=== PATIENT | female | born 1990 | race Caucasian/White ===

== ENCOUNTER 2022-01-23 09:50 | Outpatient (CLI) | payer OTHER, SELFPAY | END 2022-01-23 09:51 | disposition home or self-care (01) | LOC: NFLDREF 13:43 | PROVIDERS: Visit Provider Advanced Practice Midwife | DX: O20.9 Hemorrhage in early pregnancy, unspecified (principal) | CPT/HCPCS: 84702 ==

== ENCOUNTER 2022-01-25 14:20 | Outpatient (REF) | payer OTHER, SELFPAY | END 2022-01-25 14:21 | disposition home or self-care (01) | LOC: LAB 14:20 | PROVIDERS: Visit Provider Advanced Practice Midwife | DX: Z34.91 Encounter for supervision of normal pregnancy, unspecified, first trimester (principal); Z3A.01 Less than 8 weeks gestation of pregnancy | CPT/HCPCS: 36415; 84702 ==

== ENCOUNTER 2022-01-29 14:05 | Outpatient (CLI) | payer OTHER, SELFPAY ==
[2022-01-29 17:20] LABS: HIV 1/2/P24 Combo Screen* Negative (Negative)
[2022-01-29 17:51] LABS: Hepatitis B Surface Antigen* Negative (Negative)
[2022-01-29 18:09] LABS: Hepatitis C Virus Antibody* Negative (Negative)
[2022-01-29 19:12] LABS: Chlamydia DNA Amplified* Not Detected (No Detected); GC DNA Amplified* Not Detected (No Detected)
[2022-02-01 17:15] LABS: Varicella-Zoster Virus Ab, IgG 60.9 IV
[2022-02-01 17:18] LABS: Rubella Antibody IgG 15.8 IU/mL
[2022-02-01 18:34] LABS: Rapid Plasma Reagin (RPR) Non Reactive (Non Reactive)
== END 2022-01-29 14:06 | disposition home or self-care (01) ==
PROVIDERS: Visit Provider Advanced Practice Midwife
DX: Z34.91 Encounter for supervision of normal pregnancy, unspecified, first trimester (principal); Z3A.01 Less than 8 weeks gestation of pregnancy
CPT/HCPCS: 76817; 84443; 86592; 86703; 86762; 86787; 86803; 86850; 86900; 86901; 87086; 87340; 87491; 87591

== ENCOUNTER 2022-04-04 09:25 | Outpatient (CLI) | payer OTHER, SELFPAY ==
[2022-04-04 12:31] LABS: Cholesterol* 202 mg/dL (90-199)
[2022-04-04 12:32] LABS: Glucose* 73 mg/dL (60-115); HDL Cholesterol* 75 mg/dL (>=50); LDL Cholesterol Calculated 100 mg/dL (<100); Triglycerides* 137 mg/dL (40-149)
== END 2022-04-04 09:26 | disposition home or self-care (01) ==
PROVIDERS: Visit Provider Physician Assistant
DX: Z13.6 Encounter for screening for cardiovascular disorders (principal); Z13.1 Encounter for screening for diabetes mellitus
CPT/HCPCS: 80061; 82947

== ENCOUNTER 2022-04-30 08:53 | Outpatient (CLI) | payer OTHER, SELFPAY ==
--- NOTE | 2022-04-30 08:45 | CRLHL7_ITS ---
For Patients: As a result of the Century Cures Act, medical imaging exams and procedure reports are released immediately into your electronic medical record. You may view this report before your referring provider. If you have questions, please contact your health care provider. INDICATION: Evaluate anatomy. COMPARISON: 01/29/2022 TECHNIQUE: Real time yun scale imaging of the fetus was performed as well as color Doppler analysis of the umbilical vessels. FINDINGS: Sonographic imaging demonstrates a single living intrauterine gestation. Fetus demonstrates a regular cardiac rate of 148 beats per minute. Fetus has a variable position. The placenta lies placenta without evidence of placenta previa. The edge of the placenta is located 7.7 cm from the internal cervical os. Amniotic fluid volume appears normal. Single deepest vertical pocket: 3.7 cm. The cervix is closed and measures 4.9 cm in length. The composite ultrasound gestational age is calculated at 19 weeks 6 days with an estimated sonographic due date of 09/18/2022. The estimated weight is 342 grams which lies at the 52nd %. The following biometric measurements were obtained: Biparietal diameter: 4.4 cm/19 weeks 1 day 14th% Head circumference: 16.8 cm/19 weeks 3 days 14th% Abdominal circumference: 15.5 cm/20 weeks 5 days 60 30% Femur length: 3.2 cm/20 weeks 0 days 38th% The HC/AC ratio measures: 1.08 range (1.08-1.26) On anatomic survey, there is a normal appearance of the cerebral ventricles, cavum septi pellucidi, cisterna magna and cerebellum. The nose, lips, and facial profile appear normal. The cervical, thoracic and lumbar spine are well visualized and appear normal. Echogenic intracardiac focus. The left and right ventricular outflow tracts appear normal. The diaphragm and stomach appear normal. The kidneys and bladder also appear normal. There is a normal three-vessel cord and cord insertion site. The four extremities appear normal. IMPRESSION: Echogenic intracardiac focus, image 38/70, measuring 3 millimeters. Remainder of the survey is normal. Level 2 ultrasound recommended. Sonographic gestational age 19 weeks 6 days and sonographic due date of 09/18/2022. Good correlation with dates. Estimated weight 52nd percentile. Abdominal circumference 63rd percentile. Dictated by Sai Cid MD @ 04/30/2022 11:10:01 AM (Electronically Signed)
== END 2022-04-30 08:54 | disposition home or self-care (01) ==
LOC: US 08:53
PROVIDERS: Visit Provider Physician Assistant
DX: Z34.92 Encounter for supervision of normal pregnancy, unspecified, second trimester (principal); Z3A.20 20 weeks gestation of pregnancy
CPT/HCPCS: 76805

== ENCOUNTER 2022-05-07 14:28 | Outpatient (CLI) | payer OTHER, SELFPAY | END 2022-05-07 14:29 | disposition home or self-care (01) | LOC: US 14:28 | PROVIDERS: Visit Provider Pediatrics Neonatal-Perinatal Medicine | DX: Z34.92 Encounter for supervision of normal pregnancy, unspecified, second trimester (principal); Z3A.21 21 weeks gestation of pregnancy | CPT/HCPCS: 76816 ==

== ENCOUNTER 2022-06-27 07:56 | Outpatient (CLI) | payer OTHER, SELFPAY ==
[2022-06-27 08:06] LABS: Glucose Fasting Check 81 mg/dl (60-115)
[2022-06-27 11:54] LABS: Glucose GTT-Gestational 3 Hr 148 mg/dl (70-140)
[2022-06-27 11:55] LABS: Glucose 1 Hour Gest 183 mg/dl (70-180)
[2022-06-29 01:21] LABS: Rapid Plasma Reagin (RPR) Non Reactive (Non Reactive)
== END 2022-06-27 07:57 | disposition home or self-care (01) ==
PROVIDERS: Physician Assistant; Visit Provider Obstetrics & Gynecology
DX: Z34.93 Encounter for supervision of normal pregnancy, unspecified, third trimester (principal); Z3A.28 28 weeks gestation of pregnancy
CPT/HCPCS: 82951; 82952; 86592

== ENCOUNTER 2022-07-23 12:22 | Outpatient (CLI) | payer OTHER, SELFPAY ==
--- NOTE | 2022-07-23 12:15 | CRLHL7_ITS ---
For Patients: As a result of the Century Cures Act, medical imaging exams and procedure reports are released immediately into your electronic medical record. You may view this report before your referring provider. If you have questions, please contact your health care provider. INDICATION: COVED IN , GDM COMPARISON: 04/30/2022 TECHNIQUE: Real time yun scale imaging of the fetus was performed. FINDINGS: Sonographic imaging demonstrates a single living intrauterine gestation. Fetus demonstrates a regular cardiac rate of 142 beats per minute. Fetus has a vertex position. The placenta lies fundal posterior. Amniotic fluid volume appears normal and there is a single deepest vertical pocket: 5.7 cm. JEFF 19.0 cm. The estimated weight is 2027gm which lies at the 57th %. On the prior OB ultrasound exam dated 04/30/2022 the estimated weight was at the 52nd%. BPD 41st percentile. HC 25th percentile. AC 70th percentile. FL 50th percentile. The HC/AC ratio measures 1.02 range (0.96-1.12). IMPRESSION: Sonographic gestational age 32 weeks 4 days and sonographic due date of 09/13/2022. Good correlation with dates. Normal interval growth. Estimated weight 57th percentile. Abdominal circumference 70th percentile. Dictated by Sai Cid MD @ 07/24/2022 10:01:48 AM (Electronically Signed)
== END 2022-07-23 12:23 | disposition home or self-care (01) ==
LOC: US 12:23
PROVIDERS: Visit Provider Physician Assistant
DX: O98.513 Other viral diseases complicating pregnancy, third trimester (principal); U07.1 COVID-19; Z3A.32 32 weeks gestation of pregnancy
CPT/HCPCS: 76816

== ENCOUNTER 2022-08-19 15:52 | Outpatient (CLI) | payer OTHER, SELFPAY ==
--- NOTE | 2022-08-19 16:00 | CRLHL7_ITS ---
For Patients: As a result of the Century Cures Act, medical imaging exams and procedure reports are released immediately into your electronic medical record. You may view this report before your referring provider. If you have questions, please contact your health care provider. INDICATION: Third trimester scan, evaluate growth.+Covid in COMPARISON: 07/23/2022 TECHNIQUE: Real time yun scale imaging of the fetus was performed. FINDINGS: Sonographic imaging demonstrates a single living intrauterine gestation. Fetus demonstrates a regular cardiac rate of 145 beats per minute. Fetus has a vertex position. The placenta lies fundal posterior. Amniotic fluid volume appears normal and there is a single deepest vertical pocket: 7.3 cm. The estimated weight is 3139gm which lies at the 82nd %. On the prior OB ultrasound exam dated 07/23/2022 the estimated weight was at the 57th%. BPD 52nd percentile. HC 60th percentile. AC 96th percentile. FL 45th present. The HC/AC ratio measures 0.97 range (0.92-1.05). Normal gross body movements, tone and respiratory activity. IMPRESSION: Sonographic gestational age 36 weeks 6 days and sonographic due date 09/10/2022. Sonographic age is 6 days ahead of the clinical age. Estimated weight 82nd percentile. Abdominal circumference 96th percentile. Biophysical profile 12/16. Dictated by Sai Cid MD @ 08/21/2022 6:50:43 AM (Electronically Signed)
== END 2022-08-19 15:53 | disposition home or self-care (01) ==
LOC: US 15:53
PROVIDERS: Visit Provider Physician Assistant
DX: O98.519 Other viral diseases complicating pregnancy, unspecified trimester (principal); U07.1 COVID-19; Z3A.36 36 weeks gestation of pregnancy
CPT/HCPCS: 76816; 76819

== ENCOUNTER 2022-08-19 17:23 | Outpatient (CLI) | payer OTHER, SELFPAY ==
[2022-08-20 15:56] LABS: Strep B DNA Probe NEGATIVE (Negative)
[2022-08-20 15:57] LABS: Strep B Pen/Amox Allergy No
== END 2022-08-19 17:24 | disposition home or self-care (01) ==
LOC: NFLDREF 17:23
PROVIDERS: Visit Provider Physician Assistant
DX: Z34.93 Encounter for supervision of normal pregnancy, unspecified, third trimester (principal); Z3A.36 36 weeks gestation of pregnancy
CPT/HCPCS: 87081; 87653

== ENCOUNTER 2022-08-29 11:44 | Outpatient (CLI) | payer OTHER, SELFPAY ==
[2022-08-29 11:53] VITALS: PULSE 91; O2SAT 98
[2022-08-29 12:00] VITALS: BP 129/84; PULSE 97; RESP 20; TEMP 36.6
--- NOTE | 2022-08-29 12:49 | PM.PROC ---
Procedure Note Time Seen by Provider: 12:49 Date Seen: 08/29/22 Will [facility] bill your pro fee for this procedure?: Yes Pre-op diagnosis: Breech presentation on 08/27/22 Procedure: Bedside ultrasound showed fetus in vertex presentation. NST reactive, category 1. No ECV needed.
--- NOTE | 2022-08-29 13:08 | PC.OBNST ---
NST Note NST Note Start: 08/29/22 11:49 Freq: ONCE Status: Active Protocol: Document 08/29/22 12:59 [facility] (Rec: 08/29/22 13:02 [facility] [id number]) NST Note 3 Para (# of births) 2 EDC 09/16/22 Gestational Age In Weeks & Days 37 Weeks & 3 Days High Risk Factors Diabetes - Gestational Diet Controlled Patient Presented with Complaint(s) of Other Other Complaints External Version Reactive Yes Appropriate for Gestational Age Yes RN Addison Almodovar RN Date 08/29/22 Reactive Yes Appropriate for Gestational Age Yes TESSIE Soares RN Date 08/29/22 OB NST charge Yes Complete NST Note via Write Note Yes The provider's electronic signature indicates the NST is reactive/appropriate for gestational age. *Note to provider: If an addendum is required, open the patient's chart and click on the note under the Nurse/Allied Health tab.
== END 2022-08-29 12:59 | disposition home or self-care (01) ==
LOC: OB CLI 11:48 → OB 11:49
PROVIDERS: Visit Provider Obstetrics & Gynecology
DX: O24.419 Gestational diabetes mellitus in pregnancy, unspecified control (principal); Z3A.37 37 weeks gestation of pregnancy
CPT/HCPCS: 59025; 76815; 99211

== ENCOUNTER 2022-09-12 07:07 | Outpatient (CLI) | payer OTHER, SELFPAY ==
--- NOTE | 2022-09-12 07:15 | CRLHL7_ITS ---
For Patients: As a result of the Century Cures Act, medical imaging exams and procedure reports are released immediately into your electronic medical record. You may view this report before your referring provider. If you have questions, please contact your health care provider. INDICATION: COVID in TECHNIQUE: Real time yun scale imaging of the fetus was performed. COMPARISON: 08/19/2022 FINDINGS: Sonographic imaging demonstrates a single living intrauterine gestation. Fetus demonstrates a regular cardiac rate of 139 beats per minute. Fetus has a vertex position. The placenta lies posteriorly. Amniotic fluid volume appears normal and there is a single deepest pocket of 4.0 cm. JEFF 13.5 cm. The estimated weight is 3798gm which lies at the 74th %. On the prior OB ultrasound dated 08/19/2022 the estimated weight was at the 82nd percentile. BPD 69th percentile. HC 37th percentile. AC 92nd percentile. FL 13th percentile. The fetus was active. Absent breathing movements. There was normal flexion and extension of the trunk and extremities. IMPRESSION: Biophysical profile 10/16. Sonographic gestational age 39 weeks 0 days and sonographic due date 09/19/2022. Good correlation with dates. Normal interval growth. Estimated weight 74th percentile. Abdominal circumference 92nd percentile. Dictated by Sai Cid MD @ 09/12/2022 11:07:56 AM (Electronically Signed)
== END 2022-09-12 07:08 | disposition home or self-care (01) ==
LOC: US 07:08
PROVIDERS: Visit Provider Obstetrics & Gynecology
DX: O98.513 Other viral diseases complicating pregnancy, third trimester (principal); U07.1 COVID-19; Z3A.39 39 weeks gestation of pregnancy
CPT/HCPCS: 76816; 76819

== ENCOUNTER 2022-09-18 16:12 | Inpatient (IN) | payer OTHER, SELFPAY ==
[2022-09-18 16:19] VITALS: BP 121/76; PULSE 93
[2022-09-18 16:41] VITALS: BMI 30.3
--- NOTE | 2022-09-18 16:53 | P.OBHP_ITS ---
OB - H&P: HPI Labor/Induction History of Present Illness Time Seen by Provider: 17:15 Date Seen: 09/18/22 Chief Complaint: Analia is a 32 year old 3 para 2001 at 40 weeks and 2 days gestation by LMP, who is being admitted for cervical ripening followed by induction of labor for GDM A1. Chief complaint: Maternity Narrative: HPI: Analia is a 32-year-old 3 para 2001 at 40 and to/7weeks gestation being admitted for induction of labor. Her admission history and physical was completed by Dedra Chang MD on 08/27/2022. Her course has been complicated by diet-controlled gestational diabetes. Her membranes are not ruptured. She reports no painful contractions. The baby has been moving normally. Verbal consent obtained for Cook catheter placement. OB PROBLEM LIST: -Ruy 1. Bleeding in early . Per dating US: Left fundal uterus appear complex with hypoechoic areas with vascularity per farm equipment service technician report (radiologist report not back yet). Rad reort:?There is likely a perigestational hemorrhage adjacent to the left posterior gestational sac. 2. Varicella non-immune. Needs vaccination . 3. Family hx of hypothyroid. TSH collected at NOB: 1.68 4. FAS 04/30/2022:? echogenic intracardiac focus seen, no other anomalies, EFW 52%, posterior placenta. Negative [id number]. 5. Covid positive 05/13, out of quarantine 05/21/22. Growth US 32 & 36 weeks * 07/23/2022:? EFW 57%, BPD 41%, HC 25%, AC 70%, FL 50%, SDP 5.7 cm, JEFF 19 cm. * 08/19/2022: EFW 82%, BPD 52%, HC 60%, AC 96%, FL 45%, SDP 7.3 cm. BPP 8/8 6. Elected to do a 3 hour GTT at 28 weeks.? 85, 183H, 190H, 148H Gestational diabetes * Referral to nutrition * Q.i.d. blood sugar monitoring * Excellent blood sugar control on diet alone. * Patient prefers induction of labor closer to 40 weeks than 39 weeks, if needed. OBJECTIVE: GENERAL: Pleasant, , well groomed woman in no acute distress. VITAL SIGNS: Per electronic medical record: They are normal. HEART: Regular rate and rhythm without gallop, rub or murmur. CHEST: Clear to auscultation bilaterally. ABDOMEN: Gravid, nontender. EFM: Baseline 130s, accelerations: present, decelerations: Absent, moderate variability, reactive. Category 1 TOCO: Rare contractions. SVE: 2 cm/50 %/-2/mid/medium consistency. [place] score 5. Cook catheter placed at 5:30 p.m. with 60 mL of saline in both balloons EXTREMITIES: No edema, cyanosis, clubbing or pain. ASSESSMENT: 32-year-old 3 para 2001 at 40 and 2/7 weeks gestation admitted for cervical ripening followed by induction of labor.. PLAN: 1. Cook catheter placed with 60 mL of saline in both balloons at 5:30 p.m. on 09/18/2022. 2. Dr. Dedra Chang will assume care at 7:00 a.m. tomorrow on 09/19/2022 3. GBS negative 4. Blood type: B positive Meds Home Medications and Allergies Home Medications Medication Instructions Recorded Confirmed Type prenat.vits,rafael,zpc-zejc-bffci 1 tab PO QDAY 01/29/22 09/15/22 History magnesium 250 mg tablet 250 mg PO QDAY 02/21/22 09/15/22 History Allergies Allergy/AdvReac Type Severity Reaction Status Date / Time prochlorperazine Allergy Mild Jittery, Verified 09/15/22 07:56 felt like her throat was closing OB - H&P: Exam Physical Exam: Vital signs: Pulse BP 93 121/76 09/18/22 16:19 09/18/22 16:19
[2022-09-18 19:24] VITALS: BP 136/84; PULSE 83; PULSE 88; RESP 18; TEMP 36.8; O2SAT 96
[2022-09-18 23:39] VITALS: BP 111/69; PULSE 104; PULSE 93; PULSE 94; RESP 18; TEMP 36.8; O2SAT 92; O2SAT 95
[2022-09-19] VITALS (26 sets, daily range): BP systolic 105–131; BP diastolic 58–84; PULSE 65–128; RESP 16; TEMP 36.4–36.8; O2SAT 93–98
[2022-09-19] MEDS: LACTATED RINGERS 1000 ML 1,000 ML 125 ML IV (03:15)
[2022-09-19] MEDS: OXYTOCIN 30 unit/500 ML in NS 30 UNIT/500 ML BAG IVPB (03:20)
--- NOTE | 2022-09-19 08:00 | PM.OBPNL ---
Subjective Date Seen: 09/19/22 Narrative: Patient feels well, slept a little overnight. Aware of contractions, nonpainful. Cook catheter fell out at 2215 last evening after she used the bathroom. Pitocin infusion currently at 6 mu/min. Objective Vital Signs: Last Vital Signs Temp 97.5 F L 09/19/22 07:29 Pulse 83 09/19/22 07:24 Resp 16 09/19/22 07:29 BP 131/74 09/19/22 07:24 Pulse Ox 95 09/19/22 06:09 Pelvic Exam Dilation (cm): 5 Effacement (%): 70 Station: -2 Comments: slightly ballotable, no BBOW Contractions Monitor mode: External Contraction pattern: Irregular Contraction intensity: Mild Pitocin Rate (mU/min): 6 Assessment Assessment: induction ongoing Station: -2 Status: Category l Heart Rate Baseline: 140 Electronic Scale Tester Variability: Moderate (6-25) Monitor Accelerations: Present Monitor Decelerations: None Plan Plan: Continue current management.
[2022-09-19] MEDS: LACTATED RINGERS 1000 ML 1,000 ML 118 ML IV (11:20)
--- NOTE | 2022-09-19 11:33 | PM.OBPNL ---
Subjective Time Seen by Provider: 11:15 Date Seen: 09/19/22 Narrative: The patient feels well, contractions are stronger. She mostly feels cramping in the low abdomen. While walking, she only had to stop for a few of them. Objective Vital Signs: Last Vital Signs Temp 97.6 F 09/19/22 08:19 Pulse 76 09/19/22 10:25 Resp 16 09/19/22 08:19 BP 112/74 09/19/22 10:25 Pulse Ox 95 09/19/22 06:09 Pelvic Exam Dilation (cm): 7 Effacement (%): 80 Station: -2 Comments: BBOW Contractions Monitor mode: External Contraction pattern: Regular Contraction intensity: Moderate Pitocin Rate (mU/min): 10 Assessment Assessment: active labor Station: -2 Amniotic Membrane Status: AROM Status: Category l Heart Rate Baseline: 140 Monitor Accelerations: Present Monitor Decelerations: None Plan Plan: Amniotomy performed. Continue present management. I anticipate a vaginal delivery.
--- NOTE | 2022-09-19 12:03 | PM.OBPNL ---
Subjective Time Seen by Provider: 12:00 Date Seen: 09/19/22 Narrative: Patient feeling alot more pressure. Needing nitrous now for contraction pain. Objective Vital Signs: Last Vital Signs Temp 97.7 F 09/19/22 11:39 Pulse 85 09/19/22 11:39 Resp 16 09/19/22 11:39 BP 117/61 09/19/22 11:39 Pulse Ox 95 09/19/22 06:09 Pelvic Exam Dilation (cm): 8 Effacement (%): 80 Station: -2 Comments: OT position Contractions Monitor mode: External Contraction pattern: Regular Contraction intensity: Strong/Firm Pitocin Rate (mU/min): 10 Assessment Station: -2 Amniotic Membrane Status: AROM Status: Category l Heart Rate Baseline: 140 Monitor Accelerations: Present Monitor Decelerations: None Plan Plan: Continue current management. Delivery soon.
--- NOTE | 2022-09-19 13:52 | W.PM.OBVAGDE ---
OB Procedure Vag Delivery Mother Details Mother Details: The patient is a 32 year-old, 3, Para 2001, admitted on 09/18/22 at 40 2/7 weeks gestation for labor induction secondary to GDMA1. A Cook catheter was placed yesterday evening. It fell out at about 2215 last night. Slow Pitocin infusion was initiated at 3:00 a.m.. : 3 Para: 2 Weeks Gestation: 40.2 Admission Date: 09/18/22 Additional Details Amniotic Membrane Status: AROM Amniotic Membrane Rupture Date: 09/19/22 Amniotic Membrane Rupture Time: 11:25 Amniotic Membrane Fluid Description: Clear Analgesia/Anesthesia Type: Nitrous Oxide Waterbirth: No Pitcoin: Yes Intrapartal Events: Labor Induction Induction Method: Intracervical balloon catheter Delivery augmentation: rupture of membranes and pitocin Labor Onset: 11:25 Complete: 12:18 Pushin:18 Heart: heart tones during second stage were 140 baseline with occasional variable decels, good variability, + accelerations. Delivery Details Delivery Date: 09/19/22 Delivery Time: 12:19 Route of delivery: Gender: Female Infant Viability: Alive; Heart Rate Present Position at Delivery: OA Delivery Details: Delivered over intact perineum via spontaneous vaginal delivery on the bed. was placed on maternal abdomen.? Cord was clamped and cut after a 30-60 second delay. Nose and mouth were bulb suctioned.? Infant weight pending. 1 Minute Interval Total Score: 8 5 Minute Interval Total Score: 9 Additional Details Shoulder Dystocia: No Placenta Delivery Time: 12:26 Placental Delivery Description: Spontaneous Procedure Done: Global Blood Loss: 100 Laceration: None Blood Loss Measurement Type: EBL (100 mL) Bakri Used: No Sponge/Need Count Correct: Yes Cord Vessel Description: Around Body and Delivered through Event Summary Status: Mother and infant were stable after delivery. Disposition: floor
[2022-09-20] VITALS: BP 100/69; PULSE 76; RESP 16; TEMP 36.4; O2SAT 96
[2022-09-20 04:52] VITALS: BP 101/63; PULSE 81; RESP 16; TEMP 36.4; O2SAT 96
[2022-09-20 07:21] LABS: Hemoglobin* 11.6 gm/dL (12.0-16.0)
[2022-09-20 07:45] VITALS: BP 116/79; PULSE 80; RESP 16; TEMP 36.4
--- NOTE | 2022-09-20 09:05 | P.DS_ITS ---
DS: Providers Provider Time Seen by Provider: 09:05 Date Seen: 09/20/22 Date of admission: 09/18/22 16:12 Primary care physician: Not a Local Provider Admitting Clinician: Dedra Chang MD Attending Physician on discharge: Dedra Chang MD DS: Diagnosis Discharge Diagnosis (1) Gestational diabetes: Status: Acute (2) COVID-19 affecting , antepartum: Status: Resolved Problem details: Early May 2022 (3) Susceptible to varicella (non-immune), currently : Status: Acute (4) Seasonal allergic rhinitis: Status: Acute (5) Panic attack: Status: Acute (6) Mild depression: Status: Acute (7) Insomnia: Status: Acute (8) Asthma: Status: Acute Problem details: last used inhaler in May when she had covid Exam Narrative: Exam Narrative: Physical exam: General: No acute distress Psych: Alert and oriented x3, full affect HEENT: Normocephalic, atraumatic Neck: No cervical adenopathy, no thyromegaly Heart: Regular rate and rhythm, no murmur rub or gallop Lungs: Clear to auscultation bilaterally Abdomen: Normoactive bowel sounds, soft, no tenderness, rebound, or guarding. No fundal or suprapubic tenderness Lower extremities: 1+ bilateral edema Pelvic exam: Moderate lochia Const: Vital Signs, click to edit/add: Vital Signs - 24 hr 09/19/22 09:27 09/19/22 10:25 09/19/22 11:39 Temperature Pulse Rate 77 76 85 Pulse Rate [Pulse Oximeter] Respiratory Rate Blood Pressure 114/66 112/74 117/61 Blood Pressure [Le ft Arm] Pulse Oximetry Oxygen Delivery Al thod 09/19/22 11:39 09/19/22 12:28 09/19/22 12:29 Temperature 97.7 F Pulse Rate 70 Pulse Rate [Pulse Oximeter] Respiratory Rate 16 16 Blood Pressure 110/58 L Blood Pressure [Le ft Arm] Pulse Oximetry 97 Oxygen Delivery Me thod 09/19/22 12:30 09/19/22 12:33 09/19/22 12:43 Temperature Pulse Rate 68 Pulse Rate [Pulse Oximeter] Respiratory Rate Blood Pressure 122/68 Blood Pressure [Le ft Arm] Pulse Oximetry 93 94 Oxygen Delivery Al thod 09/19/22 12:43 09/19/22 12:58 09/19/22 12:58 Temperature 98.2 F Pulse Rate 76 Pulse Rate [Pulse Oximeter] Respiratory Rate 16 16 Blood Pressure 116/79 Blood Pressure [Le ft Arm] Pulse Oximetry Oxygen Delivery Me thod 09/19/22 13:13 09/19/22 13:13 09/19/22 13:28 Temperature Pulse Rate 68 80 Pulse Rate [Pulse Oximeter] Respiratory Rate 16 Blood Pressure 120/74 128/83 Blood Pressure [Le ft Arm] Pulse Oximetry Oxygen Delivery Me thod 09/19/22 13:28 09/19/22 13:43 09/19/22 13:57 Temperature Pulse Rate 77 Pulse Rate [Pulse Oximeter] Respiratory Rate 16 16 Blood Pressure 115/66 Blood Pressure [Le ft Arm] Pulse Oximetry Oxygen Delivery Al thod 09/19/22 13:58 09/19/22 14:13 09/19/22 14:13 Temperature Pulse Rate 72 77 Pulse Rate [Pulse Oximeter] Respiratory Rate 16 Blood Pressure 116/69 112/67 Blood Pressure [Le ft Arm] Pulse Oximetry Oxygen Delivery Al thod 09/19/22 14:28 09/19/22 14:28 09/19/22 15:30 Temperature 98.2 F 98.2 F Pulse Rate 67 Pulse Rate [Pulse Oximeter] 68 Respiratory Rate 16 16 Blood Pressure 105/63 Blood Pressure [Le ft Arm] 119/84 Pulse Oximetry Oxygen Delivery Al thod 09/19/22 20:15 09/20/22 00:00 09/20/22 04:52 Temperature 97.5 F L 97.5 F L 97.6 F Pulse Rate Pulse Rate [Pulse Oximeter] 82 76 81 Respiratory Rate 16 16 16 Blood Pressure Blood Pressure [Le ft Arm] 127/83 100/69 101/63 Pulse Oximetry 95 96 96 Oxygen Delivery Al thod Room Air Room Air Room Air OB - DS: Summary Hospital Course Hospital Course: The patient is a 32 year old G 3 P 2001 at 40.2 weeks gestation that was admitted to the Center on 09/18/22 for induction of labor secondary to GDMA1. She had an uncomplicated vaginal delivery. She delivered a viable female . She is breast feeding. the patient has done well. Overnight patient had no complaints. Her pain is well controlled on oral pain medications. She is tolerating a regular diet. She has passed flatus. She it ambulating without difficulty. Lochia is scant. She is urinating without rico. Patient denies chest pain, SOB, n/v, headache, RUQ pain, vision changes, dizziness. Stable and appropriate for discharge on day 1. Gender: Female Time Spent with Patient Time attestation: Total time spent providing and/or coordinating discharge services: Discharge Plan Discharge Disposition: Home, Self-Care Date of Admission: 09/18/22 16:12 Attending Provider on Discharge: Rosalie Odonnell MD Primary Care Provider: Provider,Not a Local Condition: Stable Anticipated Discharge Date/Time: 09/20/22 08:55 Discharge Medications: New acetaminophen 500 mg Tablet 1,000 mg PO Q6H PRN14 Days Qty: 60 0RF docusate sodium 100 mg Capsule 100 mg PO DAILY 30 Days Qty: 30 0RF ibuprofen 600 mg Tablet 600 mg PO Q6H PRN14 Days Qty: 30 0RF simethicone 80 mg Tablet,Chewable 80 - 160 mg PO Q4H PRN (Reason: gas) 30 Days Qty: 60 0RF Continued magnesium 250 mg tablet 250 mg PO QDAY prenat.vits,rafael,gcz-imcb-jjzot Tablet 1 tab PO QDAY (DME) Test Strips Misc See Rx Instructions .MEDSUPPLY Qty: 100 3RF Rx Instructions: Test blood sugar as directed 4 times daily (DME) lancets Misc See Rx Instructions .MEDSUPPLY Qty: 100 3RF Rx Instructions: Test blood sugar as directed 4 times daily. (DME) Blood Glucose Meter Misc See Rx Instructions .MEDSUPPLY Qty: 1 0RF Rx Instructions: Test blood sugar as directed 4 times daily Discharge Orders: Discharge Order (Routine); Ordered 09/20/22 Ordered By: Rosalie Odonnell Patient Education: OB Vaginal/Breast Feeding Activity Level: Activity as Tolerated Activity Detail: Pelvic rest for 6 weeks Discharge Diet: Regular Follow Up Appointments: Provider,Not a Local [Primary Care Provider] - Forms: [facility] Info Instructions Discharge Comments: Discharge instructions were reviewed with the patient including signs and symptoms of infection and home going medications. Lifting Restrictions: 20 pounds for [address] while taking narcotic pain medication: Approximately 1 week. Off Work or School for 6 weeks. Nothing vaginally for 6 weeks Symptoms to report to doctor: -Bleeding that saturates more than one pad per hour ?-Passing clots larger than the size of a golf ball ?-Pain not relieved by prescribed medication ?-Fever above 100.4 degrees Fahrenheit ?-A foul vaginal odor ?-Difficulty in emotions, mood and functions ?-Thoughts of hurting yourself and/or ?-Painful, reddened area in your breast ?-Any drainage, redness or tenderness in your IV/epidural site ?-Severe headache that doesn't improve after taking medications ?-Changes in vision, including temporary loss of vision, blurred vision, and/or light sensitivity ?-Upper abdominal pain (usually under ribs on the right side) ?-Decrease in urination or painful, frequent urinating ?-Chest pain ?-Shortness of breath ?-Tenderness or pain with redness and/swelling in the calf(s) of your leg Follow Up [facility] a [facility] provider: 2 week visit: Answer concerns for care, screen for anxiety/depression. Patient with need Varicella vaccine 6 week visit: Annual exam. consultation services are available to all mothers and babies for the first year after delivery.? To make an appointment, please call [phone].
[2022-09-20 12:45] VITALS: BP 118/80; PULSE 78; RESP 16; TEMP 36.4
== END 2022-09-20 13:10 | disposition home or self-care (01) | DRG 807 ==
PROVIDERS: Admitting Provider Obstetrics & Gynecology; Visit Provider Obstetrics & Gynecology
DX: O24.420 Gestational diabetes mellitus in childbirth, diet controlled (principal); Z37.0 Single live birth; O99.344 Other mental disorders complicating childbirth; F41.0 Panic disorder [episodic paroxysmal anxiety]; F32.A Depression, unspecified; G47.00 Insomnia, unspecified; J45.909 Unspecified asthma, uncomplicated; Z3A.40 40 weeks gestation of pregnancy
CPT/HCPCS: 36415; 59200; 85018; 87635; 88307; C1726; J7120

== ENCOUNTER 2022-10-31 08:20 | Outpatient (CLI) | payer OTHER, SELFPAY | END 2022-10-31 08:21 | disposition home or self-care (01) | LOC: NFLDREF 10:56 | PROVIDERS: Visit Provider Obstetrics & Gynecology | DX: O24.419 Gestational diabetes mellitus in pregnancy, unspecified control (principal) | CPT/HCPCS: 82947; 82950 ==

== ENCOUNTER 2023-01-26 12:17 | Outpatient (CLI) | payer OTHER, SELFPAY | END 2023-01-26 12:18 | disposition home or self-care (01) | LOC: LONREF 12:19 | PROVIDERS: Visit Provider Obstetrics & Gynecology | DX: Z00.00 Encounter for general adult medical examination without abnormal findings (principal); Z13.6 Encounter for screening for cardiovascular disorders | CPT/HCPCS: 80061 ==

== ENCOUNTER 2024-03-07 09:56 | Outpatient (CLI) | payer OTHER, SELFPAY | END 2024-03-07 09:57 | disposition home or self-care (01) | PROVIDERS: Visit Provider Obstetrics & Gynecology | DX: Z01.419 Encounter for gynecological examination (general) (routine) without abnormal findings (principal); Z13.6 Encounter for screening for cardiovascular disorders; Z13.1 Encounter for screening for diabetes mellitus; Z13.29 Encounter for screening for other suspected endocrine disorder | CPT/HCPCS: 80061; 82947; 84443 ==

== ENCOUNTER 2024-10-20 11:07 | Outpatient (CLI) | payer OTHER, SELFPAY | END 2024-10-20 11:08 | disposition home or self-care (01) | PROVIDERS: PCP Physician Assistant Medical; Visit Provider Physician Assistant Medical | DX: Z13.29 Encounter for screening for other suspected endocrine disorder (principal); F41.9 Anxiety disorder, unspecified | CPT/HCPCS: 82306; 84443 ==